=== PATIENT | male | born 1985 | race Caucasian/White ===

== ENCOUNTER 2018-12-07 01:10 | Emergency (ER) | payer OTHER ==
[~2018-12-07] VITALS: Ht 182.9 cm; Wt 61.2 kg
== END 2018-12-07 01:58 | disposition home or self-care (01) ==
LOC: ED 01:10
PROC: 0HQ1XZZ Repair Face Skin, External Approach (ICD-10-PCS; principal; 2018-12-07)
DX: S01.81XA Laceration without foreign body of other part of head, initial encounter (principal); Z87.01 Personal history of pneumonia (recurrent); Y04.0XXA Assault by unarmed brawl or fight, initial encounter
CPT/HCPCS: 12013; 99282-25

== ENCOUNTER 2018-12-12 09:54 | Emergency (ER) | payer OTHER ==
[~2018-12-12] VITALS: Ht 182.9 cm; Wt 61.2 kg
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
== END 2018-12-12 10:01 | disposition home or self-care (01) ==
LOC: ED 09:54
DX: Z48.02 Encounter for removal of sutures (principal)